=== PATIENT | female | born 1990 | race Caucasian/White ===

== ENCOUNTER 2017-07-08 13:14 | Emergency (ER) | payer OTHER ==
[2017-07-08 13:22] VITALS: BP 125/81; PULSE 100; TEMP 97.7; BMI 31.3
--- NOTE | 2017-07-08 16:12 | PDOC ---
History of Present Illness - History of Present Illness Initial Comments: 07/08/17 16:59 The patient is a 26 year old japanese-speaking female, with a significant past medical history of UTI's, who presents to the emergency department with suprapubic pain for 3 days. She states that she is also experiencing a subjective fever and some back pain. She states that her LMP was Oct. 21. She denies recent chills, headache or dizziness. She denies recent nausea, vomit , diarrhea or constipation. She denies recent dysuria, frequency, urgency or hematuria. She denies recent chest pain or shortness of breath. Allergies: NKA Past surgical history: Social history: Nonsmoker. Denies EtOH use and recreational drug use. Primary Care Physician: Josh Ascencio <Deena Duran - Last Filed: 07/08/17 17:33> <Christiana Bower - Last Filed: 07/08/17 18:48> - General Chief Complaint: Pain Stated Complaint: LT SIDE/ ABD PAIN Time Seen by Provider: 07/08/17 16:11 Past History <Deena Duran - Last Filed: 07/08/17 17:33> - Past Medical History COPD: No - Suicide/Smoking/Psychosocial Hx Smoking History: Never smoked Have you smoked in the past 12 months: No Information on smoking cessation initiated: No Hx Alcohol Use: No Drug/Substance Use Hx: No Substance Use Type: None <Christiana Bower - Last Filed: 07/08/17 18:48> - Past Medical History Allergies/Adverse Reactions: Allergies Allergy/AdvReac Type Severity Reaction Status Date / Time No Known Allergies Allergy Verified 07/08/17 13:18 Home Medications: Ambulatory Orders Sulfamethoxazole/Trimethoprim [Bactrim Ds -] 1 tab PO BID #10 tablet 07/08/17 Review of Systems - Review of Systems Comments:: 07/08/17 17:06 CONSTITUTIONAL: Present: subjective fever Absent: no chills, no fatigue EYES: Absent: visual changes ENT: Absent: ear pain, no sore throat CARDIOVASCULAR: Absent: chest pain, no palpitations RESPIRATORY: Absent: cough, no SOB GI: Present: suprapubic pain Absent:no nausea, no vomiting, no constipation, no diarrhea GENITOURINARY: Absent: dysuria, no frequency, no hematuria MUSCULOSKELETAL: Present: back pain Absent: no arthralgia, no myalgia SKIN: Absent: rash NEURO: Absent: headache <Deena Duran - Last Filed: 07/08/17 17:33> *Physical Exam - Vital Signs Last Vital Signs Temp Pulse Resp BP Pulse Ox 97.7 F 100 H 18 125/81 100 07/08/17 13:19 07/08/17 13:19 07/08/17 13:19 07/08/17 13:19 07/08/17 13:19 - Physical Exam Comments: 07/08/17 17:07 GENERAL: Well-appearing, well-nourished. No apparent distress. HEENT: Normocephalic, atraumatic. PERRL, EOM intact. CARDIOVASCULAR: Normal S1, S2. Regular rate and rhythm. PULMONARY: Clear to auscultation bilaterally. ABDOMEN: Soft, non-distended, non-tender. EXTREMITIES: Normal ROM in all four extremities. No gross deformities. SKIN: Warm, dry. No rash NEUROLOGICAL: No focal neurological deficits. <Deena Duran - Last Filed: 07/08/17 17:33> - Vital Signs Last Vital Signs Temp Pulse Resp BP Pulse Ox 97.7 F 100 H 18 125/81 100 07/08/17 13:19 07/08/17 13:19 07/08/17 13:19 07/08/17 13:19 07/08/17 13:19 <Christiana Bower - Last Filed: 07/08/17 18:48> ED Treatment Course - LABORATORY CBC & Chemistry Diagram: 07/08/17 16:45 07/08/17 16:45 <Deena Duran - Last Filed: 07/08/17 17:33> - LABORATORY CBC & Chemistry Diagram: 07/08/17 16:45 07/08/17 16:45 <Christiana Bower - Last Filed: 07/08/17 18:48> *DC/Admit/Observation/Transfer - Attestations Scribe Attestion: 07/08/17 17:07 Documentation prepared by Deena Duran, acting as medical concierge for Christiana Bower MD. <Deena Duran - Last Filed: 07/08/17 17:33> <Christiana Bower - Last Filed: 07/08/17 18:48> Diagnosis at time of Disposition: Dysuria, Flank pain - Discharge Dispostion Disposition: HOME Condition at time of disposition: Stable - Prescriptions Prescriptions: Sulfamethoxazole/Trimethoprim [Bactrim Ds -] 1 tab PO BID #10 tablet - Referrals Referrals: Josh Ascencio MD [Primary Care Provider] - - Patient Instructions Printed Discharge Instructions: DI for Dysuria -- Adult Additional Instructions: please pick up and delivery driver your medication at [facility] pharmacy return for any worsening symptoms - Post Discharge Activity
[2017-07-08 17:01] LABS: PH,URINE 6.5 (5.0-8.0); URINE APPEARANCE CLEAR; URINE BILIRUBIN NEGATIVE (NEGATIVE); URINE BLOOD 3+ (NEGATIVE); URINE COLOR LT. YELLOW; URINE GLUCOSE (UA) NEGATIVE (NEGATIVE); URINE KETONE NEGATIVE (NEGATIVE); URINE NITRITE NEGATIVE (NEGATIVE); URINE UROBILINOGEN 0.2 mg/dL (0.2-1.0)
[2017-07-08 17:16] LABS: URINE PROTEIN 2+ (NEGATIVE)
[2017-07-08 17:20] LABS: BASOPHIL 0.2 % (0-2.0); EOSINOPHIL 0.6 % (0-4.5); MCH 30.2 pg (25.7-33.7); MCHC 33.8 g/dl (32.0-36.0); MEAN CELL VOLUME 89.3 fl (80-96); MEAN PLT VOLUME 10.7 fl (7.5-11.1); NEUTROPHILS 56.4 % (42.8-82.8); PLATELET COUNT 137 K/MM3 (134-434); RDW 12.1 % (11.6-15.6); WHITE BLOOD COUNT 8.9 K/mm3 (4.0-10.0)
[2017-07-08 17:26] LABS: ALBUMIN 4.6 g/dl (3.4-5.0); ANION GAP 8 (8-16); BILIRUBIN,TOTAL 0.3 mg/dL (0.2-1.0); CALCIUM 9.4 mg/dL (8.5-10.1); CO2 28 mmol/L (21-32); CREATININE 0.7 mg/dL (0.55-1.02); GLUCOSE,RANDOM 82 mg/dL (74-106); SGOT/AST 59 U/L (15-37); SGPT/ALT 88 U/L (12-78)
[2017-07-08 17:27] LABS: ALK PHOS 93 U/L (45-117); TOT PROT 8.1 g/dl (6.4-8.2)
[2017-07-08] MEDS ORDERED: SULFAMETHOXAZOLE/TRIMETHOPRIM 800MG/160MG D.S. TABLET PO ONE (18:43)
[2017-07-08] MEDS ORDERED: SULFAMETHOXAZOLE/TRIMETHOPRIM 800MG/160MG D.S. TABLET ONE (19:02)
[2017-07-08 21:21] LABS: URINE LEUK ESTERASE 3+ (NEGATIVE)
[2017-07-08 21:43] LABS: URINE BACTERIA MODERATE /hpf (NONE SEEN); URINE MUCUS RARE; URINE RBC 91 /hpf (0-3); URINE WBC 148 /hpf (3-5); YEAST FEW
== END 2017-07-08 19:22 | disposition home or self-care (01) ==
LOC: JER 13:14
DX: N39.0 Urinary tract infection, site not specified (principal)
CPT/HCPCS: 36415; 80053; 81003; 81015; 83690; 84703; 85025; 87086; 87186; 99284-25

== ENCOUNTER 2018-05-04 16:32 | Emergency (ER) | payer OTHER ==
--- NOTE | 2018-05-04 16:37 | PDOC ---
Rapid Medical Evaluation Chief Complaint: Chest Pain Time Seen by Provider: 05/04/18 16:35 Medical Evaluation: Allergies Allergy/AdvReac Type Severity Reaction Status Date / Time No Known Allergies Allergy Verified 05/04/18 16:35 05/04/18 16:36 The patient presents with a chief complaint of: palpitations I have performed a brief in-person evaluation of this patient. Pertinent physical exam findings: vss, stable I have ordered the following: ekg , labs The patient will proceed to the ED for further evaluation.
[2018-05-04 16:38] VITALS: BMI 32.3
[2018-05-04 17:24] LABS: BASO % 0.6 % (0-2.0); EOS % 0.9 % (0-4.5); HEMATOCRIT 39.1 % (32.4-45.2); HEMOGLOBIN 13.1 GM/dL (10.7-15.3); LYMPH % 47.3 % (8-40); MCH 29.6 pg (25.7-33.7); MCHC 33.5 g/dl (32.0-36.0); MEAN CELL VOLUME 88.6 fl (80-96); MEAN PLT VOLUME 10.2 fl (7.5-11.1); MONO % 7.7 % (3.8-10.2); NEUT % 43.5 % (42.8-82.8); PLATELET COUNT 168 K/MM3 (134-434); RBC 4.41 M/mm3 (3.60-5.2); RDW 12.6 % (11.6-15.6)
[2018-05-04 17:58] LABS: URINE APPEARANCE SLCLOUDY; URINE BILIRUBIN NEGATIVE (<2.0 mg/dL); URINE COLOR YELLOW; URINE GLUCOSE (UA) 1+ (NEGATIVE); URINE KETONE NEGATIVE (NEGATIVE); URINE LEUK ESTERASE TRACE (NEGATIVE); URINE NITRITE NEGATIVE (NEGATIVE); URINE PROTEIN NEGATIVE (NEGATIVE); URINE UROBILINOGEN NEGATIVE mg/dL (0.2-1.0)
[2018-05-04 18:01] LABS: EPI CELLS MODERATE /HPF (FEW)
[2018-05-04 18:07] LABS: ALBUMIN 3.8 g/dl (3.4-5.0); ALK PHOS 71 U/L (45-117); ANION GAP 5 MMOL/L (8-16); BILIRUBIN,TOTAL 0.2 mg/dL (0.2-1); BLOOD UREA NITROGEN 12 mg/dL (7-18); CALCIUM 8.3 mg/dL (8.5-10.1); CHLORIDE 106 mmol/L (98-107); CO2 26 mmol/L (21-32); CREATININE 0.7 mg/dL (0.55-1.3); GLUCOSE,RANDOM 98 mg/dL (74-106); POTASSIUM 3.7 mmol/L (3.5-5.1); SGOT/AST 60 U/L (15-37); SGPT/ALT 90 U/L (13-61); SODIUM 137 mmol/L (136-145); TOT PROT 7.5 g/dl (6.4-8.2)
--- NOTE | 2018-05-04 18:11 | PDOC ---
Attending Attestation - Resident Resident Name: Sathish Jane - ED Attending Attestation I have performed the following: I have examined & evaluated the patient, The case was reviewed & discussed with the resident, I agree w/resident's findings & plan, Exceptions are as noted - HPI HPI: 05/04/18 18:54 The patient is a 27 year old female, with a significant past medical history of UTIs, who presents to the emergency department with 3 days of shortness of breath and palpitations. She states her palpitations are constant and feels irregular. She states the palpitations makes her want to cough. She denies CP at this time. No alleviating or exacerbating factors of pain reported. She denies recent travel. No oral contraceptive use. She denies dyspnea on exertion. , hemotpysis, leg swelling or leg pain. The patient denies chest pain, headache and dizziness. The patient denies fever , chills, nausea, vomit, diarrhea and constipation. The patient denies dysuria, frequency, urgency and hematuria. Allergies: NKDA Past surgical history: Social history: Nonsmoker. Denies EtOH use and recreational drug use. Primary Care Physician: Josh Ascencio - Physicial Exam PE: 05/04/18 18:56 GENERAL: The patient is awake, alert, and fully oriented, Nontoxic - in no acute distress. HEAD: Normocephalic, atraumatic. NECK: Normal range of motion, supple LUNGS: Breath sounds equal, clear to auscultation bilaterally. No wheezes, no rhonchi, no rales. HEART: Regular rate and rhythm, normal S1 and S2 without murmur, rub or gallop. ABDOMEN: Soft, nontender, normoactive bowel sounds. No guarding, no rebound. . No CVA tenderness EXTREMITIES: Normal range of motion, no edema. Neg homans sign NEUROLOGICAL: No facial assymetry, Normal speech, moving all 4 extremities spontaneously and symmetrically PSYCH: Normal mood, normal affect. SKIN: Warm, Dry, normal turgor, - Medical Decision Making 05/04/18 18:36 ddx - anemia, metabolic derangement, thyroid disease consider PE - tachycardic 05/04/18 19:16 signed out to evening team to fu with results and disposition the pt Heart Score/ECG Review - ECG Impressions Comment:: 05/04/18 18:19 Twelve-lead EKG was performed and reviewed by me. There is normal sinus rhythm with a normal rate. rate of 96 PACs present The axis is normal. The intervals are normal. There is normal R wave progression There are no ST or T wave abnormalities. nonspecific TWI in lead III
--- NOTE | 2018-05-04 18:48 | PDOC ---
History of Present Illness - General Chief Complaint: Chest Pain Stated Complaint: CHEST PAIN Time Seen by Provider: 05/04/18 16:35 History Source: Patient Exam Limitations: No Limitations - History of Present Illness Initial Comments: 05/04/18 18:57 Patient is a 27F with history of anxiety here today complaining of 3 days of palpitations, shortness of breath and chest pain. Patient states that she feels like her heart is racing and she can not breathe. Denies fevers, chills, nausea , vomiting. Denies cough. Denies leg swelling, recent travel, OCP/estrogen use. Patient denies cardiac history, family history of cardiac problems and smoking. Chest pain is substernal and has no relieving or exacerbating factors. Patient endorsed chest pain to nursing and triage, but denied it to me. Past History - Past Medical History Allergies/Adverse Reactions: Allergies Allergy/AdvReac Type Severity Reaction Status Date / Time No Known Allergies Allergy Verified 05/04/18 16:35 Home Medications: Ambulatory Orders NK [No Known Home Medication] 05/04/18 COPD: No Psychiatric Problems: Yes (Anxiety) - Immunization History Immunization Up to Date: Yes - Suicide/Smoking/Psychosocial Hx Smoking History: Never smoked Have you smoked in the past 12 months: No Hx Alcohol Use: No Drug/Substance Use Hx: No Substance Use Type: None Review of Systems - Review of Systems Comments:: 05/04/18 19:01 GENERAL/CONSTITUTIONAL: No fever or chills. No weakness. HEAD, EYES, EARS, NOSE AND THROAT: No change in vision. No sore throat. CARDIOVASCULAR: +chest pain +shortness of breath RESPIRATORY: No cough, wheezing, or hemoptysis. GASTROINTESTINAL: No nausea, vomiting, diarrhea or constipation. GENITOURINARY: No dysuria, frequency, or change in urination. MUSCULOSKELETAL: No joint or muscle swelling or pain. No neck or back pain. SKIN: No rash NEUROLOGIC: No headache, vertigo, loss of consciousness, or change in strength/ sensation. ENDOCRINE: No increased thirst. No abnormal weight change HEMATOLOGIC/LYMPHATIC: No anemia, easy bleeding, or history of blood clots. ALLERGIC/IMMUNOLOGIC: No hives or skin allergy. *Physical Exam - Vital Signs Last Vital Signs Temp Pulse Resp BP Pulse Ox 99.6 F 111 H 18 130/83 99 05/04/18 16:35 05/04/18 16:35 05/04/18 16:35 05/04/18 16:35 05/04/18 16:35 - Physical Exam Comments: 05/04/18 19:02 GENERAL: Awake, alert, and fully oriented, in no acute distress HEAD: No signs of trauma, normocephalic, atraumatic EYES: PERRLA, EOMI, sclera anicteric, conjunctiva clear ENT: Auricles normal inspection, hearing grossly normal, nares patent, oropharynx clear without exudates. Moist mucosa NECK: Normal ROM, supple, no lymphadenopathy, JVD, or masses LUNGS: No distress, speaks full sentences, clear to auscultation bilaterally HEART: Regular rate and rhythm, normal S1 and S2, no murmurs, rubs or gallops, peripheral pulses normal and equal bilaterally. ABDOMEN: Soft, nontender, normoactive bowel sounds. No guarding, no rebound. No masses EXTREMITIES: Normal inspection, Normal range of motion, no edema. No clubbing or cyanosis. NEUROLOGICAL: Cranial nerves II through XII grossly intact. Normal speech, normal gait, no focal sensorimotor deficits SKIN: Warm, Dry, normal turgor, no rashes or lesions noted. ED Treatment Course - LABORATORY CBC & Chemistry Diagram: 05/04/18 17:08 05/04/18 17:08 - ADDITIONAL ORDERS Additional order review: Laboratory Results 05/04/18 05/04/18 17:09 17:08 Sodium 137 Potassium 3.7 Chloride 106 Carbon Dioxide 26 Anion Gap 5 L BUN 12 Creatinine 0.7 Creat Clearance w eGFR > 60 Random Glucose 98 Calcium 8.3 L Total Bilirubin 0.2 AST 60 H ALT 90 H Alkaline Phosphatase 71 Total Protein 7.5 Albumin 3.8 Urine Color Yellow Urine Appearance Slcloudy Urine pH 6.0 Ur Specific [place] 1.024 Urine Protein Negative Urine Glucose (UA) 1+ H Urine Ketones Negative Urine Blood Negative Urine Nitrite Negative Urine Bilirubin Negative Urine Urobilinogen Negative Ur Leukocyte Esterase Trace Urine WBC (Auto) 3 Urine RBC (Auto) 2 Ur Epithelial Cells Moderate 05/04/18 17:08 RBC 4.41 MCV 88.6 MCHC 33.5 RDW 12.6 MPV 10.2 Neutrophils % 43.5 D Lymphocytes % 47.3 H D Monocytes % 7.7 Eosinophils % 0.9 Basophils % 0.6 Medical Decision Making - Medical Decision Making 05/04/18 19:02 Patient is 27F with history of anxiety here today with chest pain, shortness of breath, palpitations. Vital signs notable for tachycardia. DDx includes, but is not limited to: anxiety, arrhythmia, PE. Do not suspect patient for ACS given age and complete lack of risk factors. EKG shows sinus rhythm with premature supraventricular complexes. No significant t-wave abnormalities. Normal axis. Normal intervals. 05/04/18 23:04 CBC, CMP normal. Serum preg normal. CXR shows no acute cardiopulmonary processes. UA neg D-dimer 2.2k. CTA negative. PE ruled out, believe patient most likely has benign palpitations or anxiety. Will discharge home with PCP follow up. *DC/Admit/Observation/Transfer Diagnosis at time of Disposition: Palpitations - Discharge Dispostion Disposition: HOME Condition at time of disposition: Good Decision to Admit order: No - Referrals - Patient Instructions Printed Discharge Instructions: DI for Palpitations Additional Instructions: Por favor, brandyn un seguimiento con singh mdico de atencin primaria con respecto a singh anlisis de shawna anormal. Por favor traiga yobany resultados con usted. Print Language: GREEK - Post Discharge Activity Forms/Work/School Notes: Back to Work
[2018-05-04 20:39] LABS: PROTHROMBIN TIME (PATIENT) 11.3 SEC (9.7-13.0)
[2018-05-04 23:25] VITALS: BP 125/78; PULSE 86; TEMP 98
--- NOTE | 2018-05-06 11:42 | EKG ---
Test Reason : Blood Pressure : / mmHG Vent. Rate : 096 BPM Atrial Rate : 096 BPM P-R Int : 150 ms QRS Dur : 076 ms QT Int : 352 ms P-R-T Axes : 042 060 024 degrees QTc Int : 444 ms SINUS RHYTHM WITH PREMATURE SUPRAVENTRICULAR COMPLEXES NONSPECIFIC T WAVE ABNORMALITY ABNORMAL ECG WHEN COMPARED WITH ECG OF 23-NOV-2014 15:44, PREMATURE SUPRAVENTRICULAR COMPLEXES ARE NOW PRESENT NONSPECIFIC T WAVE ABNORMALITY NOW EVIDENT IN ANTEROLATERAL LEADS Confirmed by DERRICK KESSLER MD ([id number]) on 05/06/2018 11:42:06 AM Referred By: Confirmed By:DERRICK KESSLER MD
== END 2018-05-04 23:22 | disposition home or self-care (01) ==
LOC: JER 16:32
DX: R00.2 Palpitations (principal); F41.9 Anxiety disorder, unspecified
CPT/HCPCS: 36415; 71046-TC-FY; 71275-TC; 80053; 81003; 81015; 84703; 85025; 85379; 85610; 93005; 93010; 99284-25

== ENCOUNTER 2018-08-20 15:59 | Emergency (ER) | payer OTHER ==
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
[2018-08-20] MEDS ORDERED: ACETAMINOPHEN 1000 MG/100 ML VIAL (NON FORMULARY) IVPB ONE (16:43)
[2018-08-20] MEDS ORDERED: diazePAM 5 MG TABLET PO ONE (17:30)
[2018-08-20] MEDS ORDERED: ACETAMINOPHEN 325 MG TABLET (FP) PO ONE (17:30)
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
[2018-08-20] MEDS ORDERED: ACETAMINOPHEN 325 MG TABLET (FP) ONE (17:41)
[2018-08-20] MEDS ORDERED: diazePAM 5 MG TABLET ONE (17:42)
[2018-08-20 17:45] LABS: HCG,QUALITATIVE URINE Negative; URINE APPEARANCE CLEAR; URINE BILIRUBIN NEGATIVE (<2.0 mg/dL); URINE COLOR LTYELLOW; URINE GLUCOSE (UA) NEGATIVE (NEGATIVE); URINE KETONE NEGATIVE (NEGATIVE); URINE LEUK ESTERASE NEGATIVE (NEGATIVE); URINE NITRITE NEGATIVE (NEGATIVE); URINE PROTEIN NEGATIVE (NEGATIVE); URINE UROBILINOGEN NEGATIVE mg/dL (0.2-1.0)
[2018-08-20 17:59] LABS: EPI CELLS RARE /HPF (FEW); URINE MUCUS RARE
[2018-08-20] MEDS ORDERED: IBUPROFEN 600 MG TABLET (FP) PO ONE (18:41)
[2018-08-20 19:17] VITALS: PULSE 75; BMI 27.4
[2018-08-20 19:18] VITALS: BP 124/78; TEMP 98.2
--- NOTE | 2018-08-21 12:04 | EKG ---
Test Reason : Blood Pressure : / mmHG Vent. Rate : 075 BPM Atrial Rate : 075 BPM P-R Int : 152 ms QRS Dur : 074 ms QT Int : 404 ms P-R-T Axes : 035 067 033 degrees QTc Int : 451 ms NORMAL SINUS RHYTHM NORMAL ECG WHEN COMPARED WITH ECG OF 04-MAY-2018 16:37, PREMATURE SUPRAVENTRICULAR COMPLEXES ARE NO LONGER PRESENT NONSPECIFIC T WAVE ABNORMALITY, IMPROVED IN ANTEROLATERAL LEADS Confirmed by CHECO MTZ, DERRICK ([id number]) on 08/21/2018 12:03:59 PM Referred By: Confirmed By:DERRICK KESSLER MD
== END 2018-08-20 19:10 | disposition home or self-care (01) ==
LOC: JER 15:59
PROC: 3E033NZ Introduction of Analgesics, Hypnotics, Sedatives into Peripheral Vein, Percutaneous Approach (ICD-10-PCS; principal; 2018-08-20)
DX: S16.1XXA Strain of muscle, fascia and tendon at neck level, initial encounter (principal); V43.52XA Car driver injured in collision with other type car in traffic accident, initial encounter; Y92.488 Other paved roadways as the place of occurrence of the external cause; Y93.89 Activity, other specified; Y99.8 Other external cause status
CPT/HCPCS: 70450-TC; 71045-TC-FY; 72125-TC; 81003; 81015; 84703; 93005; 93010; 99281-25

== ENCOUNTER 2021-07-09 16:05 | Emergency (ER) | payer OTHER ==
[2021-07-09 16:21] VITALS: BP 105/73; PULSE 97; TEMP 97.8; BMI 28.2
[2021-07-09 18:09] LABS: BASO % 0.2 % (0-2.0); EOS % 0.3 % (0-4.5); HEMATOCRIT 36.5 % (32.4-45.2); HEMOGLOBIN 12.7 GM/dL (10.7-15.3); LYMPH % 42.3 % (8-40); MCH 30.7 pg (25.7-33.7); MCHC 34.7 g/dl (32.0-36.0); MEAN CELL VOLUME 88.4 fl (80-96); MEAN PLT VOLUME 9.8 fl (7.5-11.1); MONO % 8.3 % (3.8-10.2); NEUT % 48.9 % (42.8-82.8); PLATELET COUNT 171 10^3/uL (134-434); RBC 4.13 M/mm3 (3.60-5.2); RDW 12.9 % (11.6-15.6); WHITE BLOOD COUNT 6.5 K/mm3 (4.0-10.0)
[2021-07-09 18:50] LABS: CALCIUM 9.2 mg/dL (8.5-10.1)
[2021-07-09 18:51] LABS: ALBUMIN 4.4 g/dl (3.4-5.0); BLOOD UREA NITROGEN 5.2 mg/dL (7-18)
[2021-07-09 18:54] LABS: CREATININE 0.6 mg/dL (0.55-1.3)
[2021-07-09 18:55] LABS: TOT PROT 7.8 g/dl (6.4-8.2)
[2021-07-09 18:56] LABS: BILIRUBIN,TOTAL 0.2 mg/dL (0.2-1)
[2021-07-09 19:57] LABS: PH,URINE 8.5 (5.0-8.0); URINE APPEARANCE CLEAR; URINE BILIRUBIN NEGATIVE (NEGATIVE); URINE COLOR YELLOW; URINE GLUCOSE (UA) NEGATIVE (NEGATIVE); URINE KETONE NEGATIVE (NEGATIVE); URINE LEUK ESTERASE NEGATIVE (NEGATIVE); URINE NITRITE NEGATIVE (NEGATIVE); URINE PROTEIN NEGATIVE (NEGATIVE); URINE UROBILINOGEN 0.2 mg/dL (0.2-1.0)
== END 2021-07-09 22:03 | disposition home or self-care (01) ==
LOC: JERFT 16:05
DX: O20.0 Threatened abortion (principal)
CPT/HCPCS: 36415; 76817-TC; 80053; 81003; 84702; 85025; 86850; 86900; 86901; 87070; 87086; 87205; 87491; 87591; 99284-25

== ENCOUNTER 2021-09-29 03:36 | Emergency (ER) | payer OTHER ==
[2021-09-29 03:51] VITALS: BP 117/85; PULSE 79; TEMP 98.1; BMI 28.2
[2021-09-29 04:40] LABS: PH,URINE 7.5 (5.0-8.0); URINE APPEARANCE CLEAR; URINE BILIRUBIN NEGATIVE (NEGATIVE); URINE COLOR YELLOW; URINE GLUCOSE (UA) NEGATIVE (NEGATIVE); URINE KETONE NEGATIVE (NEGATIVE); URINE LEUK ESTERASE NEGATIVE (NEGATIVE); URINE NITRITE NEGATIVE (NEGATIVE); URINE PROTEIN NEGATIVE (NEGATIVE); URINE UROBILINOGEN 0.2 mg/dL (0.2-1.0)
[2021-09-29] MEDS ORDERED: ACETAMINOPHEN 325 MG TABLET (FP) PO ONE (04:48)
[2021-09-29] MEDS ORDERED: ACETAMINOPHEN 325 MG TABLET (FP) ONE (04:50)
== END 2021-09-29 04:53 | disposition home or self-care (01) ==
LOC: JER 03:36
DX: O26.892 Other specified pregnancy related conditions, second trimester (principal); R10.9 Unspecified abdominal pain; Z3A.17 17 weeks gestation of pregnancy
CPT/HCPCS: 81003; 87086; 99283-25